=== PATIENT | female | born 1945 | race Caucasian/White ===

== ENCOUNTER 2019-08-28 10:55 | Emergency (ER) | payer MEDICAID ==
[~2019-08-28] VITALS: Ht 154.9 cm; Wt 52.2 kg
[2019-08-28 10:59] VITALS: BP_SYST 141
[2019-08-28] MEDS ORDERED: GASTROGRAFIN 120 ML ONE (12:10)
[2019-08-28 12:15] VITALS: BP_SYST 138
== END 2019-08-28 12:15 | disposition home or self-care (01) ==
LOC: SED 10:55
DX: K94.23 Gastrostomy malfunction (principal)
CPT/HCPCS: 43762; 74240; 99284; Q9963